=== PATIENT | male | born 1970 | race American Indian/Alaskan Native ===

== ENCOUNTER 2021-03-25 23:53 | Emergency (ER) | payer OTHER ==
[2021-03-26 00:11] VITALS: BP 137/74
[2021-03-26] MEDS ORDERED: ACETAMINOPHEN 500 MG TAB PO ONE ×2 (00:29→01:14)
[2021-03-26] MEDS ORDERED: TETANUS,DIPH,PERTUSS(ACELL) VACCINE 0.5 ML SYRINGE IM ONE ×2 (00:29→03:00)
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
[2021-03-26] MEDS ORDERED: NEOMY 3.5 MG/BACIT 400 UNITS/POLY B 5000 UNITS/GM OINT PACKET TP ONE (01:53)
== END 2021-03-26 02:12 | disposition home or self-care (01) ==
LOC: ED 23:53
DX: M79.661 Pain in right lower leg (principal); V87.7XXA Person injured in collision between other specified motor vehicles (traffic), initial encounter; Y93.89 Activity, other specified; Y92.89 Other specified places as the place of occurrence of the external cause; Y99.0 Civilian activity done for income or pay
CPT/HCPCS: 90715; 99283